=== PATIENT | female | born 1985 | race American Indian/Alaskan Native ===

== ENCOUNTER 2018-01-12 17:34 | Inpatient (IN) | payer OTHER, MEDICAID ==
[2018-01-12] MEDS ORDERED: ZOFRAN IV PRN ×2 (17:54→22:33)
[2018-01-12] MEDS ORDERED: BRETHINE IVP PRN (17:54)
[2018-01-12] MEDS ORDERED: SUBLIMAZE IV PRN (17:54)
[2018-01-12] MEDS ORDERED: NUBAIN IV PRN (17:54)
[2018-01-12] MEDS ORDERED: XYLOCAINE 2% INFILTRATI ONE (17:54)
[2018-01-12] MEDS ORDERED: STADOL IV PRN (17:54)
[2018-01-12] MEDS ORDERED: POLYCILLIN/NS 2 GM/100 ML 2 GM/100 ML BAG IV ONE (17:54)
[2018-01-12] MEDS ORDERED: BRETHINE SUB-Q PRN (17:54)
[2018-01-12] MEDS ORDERED: MINERAL OIL PO PRN (17:54)
[2018-01-12] MEDS ORDERED: ePHEDrine SULFATE IV PRN (17:54)
[2018-01-12] MEDS ORDERED: PITOCin/NS 30 UNIT/500ML 30 UNITS/500 ML BAG IV SCH (18:00)
[2018-01-12] MEDS ORDERED: LACTATED RINGERS 1,000 ML IV SCH (18:00)
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
[2018-01-12 19:46] LABS: Amphetamine Screen,Urine PRESUMPTIVE NEGATIVE; Benzodiazepines Screen,Urine PRESUMPTIVE NEGATIVE; Cannabinoid Screen,Urine PRESUMPTIVE NEGATIVE; Cocaine Screen,Urine PRESUMPTIVE NEGATIVE; Methadone Screen,Urine PRESUMPTIVE NEGATIVE; Opiate Screen,Urine PRESUMPTIVE NEGATIVE
--- NOTE | 2018-01-12 19:48 | Procedure Note ---
OB Delivery Note - Delivery Date of Delivery: 01/12/18 Surgeon: WENDY RIVAS Estimated blood loss: other (350mL) - Vaginal Delivery presentation: vertex Delivery position: OA Intrapartum events: no care Delivery induction: none Delivery monitor: external FHT, external uterine Route of delivery: Delivery placenta: spontaneous (intact) Anesthesia: none - Infant A at 1 minute: 8 at 5 minutes: 9 Gender: Female (8#8oz)
[2018-01-12 19:59] LABS: Hepatitis C Virus Antibody Non-Reactive (NonReactive)
[2018-01-12 20:00] LABS: Rubella IgG Antibody Immune (Immune)
[2018-01-12] MEDS: PITOCin/NS 20 UNIT/1000ML DRIP 20 UNITS/1,000 ML BAG IV SCH ×2 (21:25→21:33)
[2018-01-12] MEDS ORDERED: AMPICILLIN/NS 1 GM/50 ML 1 GM/50 ML BAG IV SCH (21:56)
[2018-01-12] MEDS ORDERED: PHENERGAN PO PRN (22:33)
[2018-01-12] MEDS ORDERED: HEMABATE IM PRN (22:33)
[2018-01-12] MEDS ORDERED: LANSINOH TP PRN (22:33)
[2018-01-12] MEDS ORDERED: TUCKS PAD TP PRN (22:33)
[2018-01-12] MEDS ORDERED: SODIUM CHLORIDE FLUSH SYRINGE 10 ML IV PRN (22:33)
[2018-01-12] MEDS ORDERED: DULCOLAX PR PRN (22:33)
[2018-01-12] MEDS ORDERED: MILK OF MAGNESIA PO PRN (22:33)
[2018-01-12] MEDS ORDERED: PITOCin/NS 20 UNIT/1000ML DRIP 20 UNITS/1,000 ML BAG IV SCH (22:33)
[2018-01-12] MEDS ORDERED: PHENERGAN PR PRN (22:33)
[2018-01-12] MEDS ORDERED: TYLENOL PO PRN (22:33)
[2018-01-12] MEDS ORDERED: METHERGINE IM PRN (22:33)
[2018-01-12] MEDS ORDERED: CYTOTEC PR PRN (22:33)
[2018-01-12] MEDS ORDERED: BENADRYL PO PRN (22:33)
[2018-01-12] MEDS: MOTRIN PO SCH (22:49)
[2018-01-13] MEDS ORDERED: DEPO-PROVERA (CONTRACEPTION) IM NR (08:28)
--- NOTE | 2018-01-13 08:28 | Progress Note ---
Assessment and Plan patient resting w/ c/o cramping. VSSAF, H&H pending - pt w/o s/s of anemia. Lochia scant. Patient requests depo prior to d/c home. Continue pathway. - Patient Problems (1) (normal spontaneous vaginal delivery) Current Visit: Yes Status: Acute (2) No care in current Current Visit: Yes Status: Acute Qualifiers: Trimester: third trimester Qualified Code(s): O09.33 - Supervision of with insufficient care, third trimester Subjective - Subjective Date of service: 01/13/18 Principal diagnosis: day #1 s/p , no care Patient reports: appetite normal, voiding normally, pain well controlled, ambulating normally, no dizzy ambulation, no nauseated [place]: doing well, bottle feeding Objective - Vital Signs Latest vital signs: Vital Signs Temp Pulse Resp BP BP Pulse Ox 01/13/18 02:21 18 01/13/18 00:00 98.4 F 72 20 132/78 01/12/18 22:49 18 01/12/18 21:52 98.2 F 61 20 142/84 01/12/18 21:15 68 146/84 01/12/18 21:11 69 98 01/12/18 21:09 73 94 01/12/18 21:06 76 98 01/12/18 21:01 64 99 01/12/18 21:00 63 151/86 01/12/18 20:56 66 100 01/12/18 20:51 63 99 01/12/18 20:46 65 98 01/12/18 20:45 68 157/87 01/12/18 20:41 68 96 01/12/18 20:36 72 99 01/12/18 20:32 65 91 01/12/18 20:31 68 99 01/12/18 20:30 68 146/92 01/12/18 20:27 69 94 01/12/18 20:26 71 96 01/12/18 20:21 73 98 01/12/18 20:19 78 94 01/12/18 20:16 63 96 01/12/18 20:15 64 141/89 01/12/18 20:11 65 98 01/12/18 20:07 69 94 01/12/18 20:06 97.9 F 68 18 145/88 99 01/12/18 20:01 76 98 01/12/18 20:00 71 145/88 01/12/18 19:56 79 95 01/12/18 19:50 65 85 01/12/18 19:37 84 98 01/12/18 19:35 104 H 86 01/12/18 19:32 105 H 97 01/12/18 19:30 95 H 89 01/12/18 19:27 93 H 99 01/12/18 19:22 83 96 01/12/18 19:17 89 99 01/12/18 19:13 90 93 01/12/18 19:12 93 H 98 01/12/18 19:07 80 96 01/12/18 19:05 87 91 01/12/18 19:02 73 100 01/12/18 18:57 106 H 98 01/12/18 18:56 22 01/12/18 18:52 68 97 01/12/18 18:47 64 100 01/12/18 18:42 66 99 01/12/18 18:37 96 H 94 01/12/18 18:35 72 94 01/12/18 18:32 86 98 01/12/18 18:30 78 93 01/12/18 18:27 86 100 01/12/18 18:25 98.2 F 72 20 131/77 98 01/12/18 18:22 72 100 01/12/18 18:19 65 131/77 01/12/18 18:17 103 H 83 L 01/12/18 18:09 73 100 Intake and Output 01/12/18 01/13/18 01/13/18 23:59 07:59 15:59 Intake Total 16.667 720 Output Total 600 Balance 16.667 120 Intake: IV 16.667 PITOCin/NS 20 UNIT/1000ML 16.667 DRIP 20 units In 1,000 ml @ 125 mls/hr IV DIRECT SUNITA Rx#:[id number] Oral 720 Output: Urine 600 Void 600 Other: Total, Intake Amount 480 Total, Output Amount 600 Weight 283 kg Estimated Blood Loss 350 - Exam Breasts: Present: normal Cardiovascular: Present: Regular rate Lungs: Present: Clear to auscultation, Normal air movement Abdomen: Present: normal appearance, soft Vulva: both: normal Uterus: Present: normal, firm, fundal height at umbilicus Extremities: Present: normal
[2018-01-13 10:01] LABS: Hematocrit 26.3 % (30.3-42.9); Hemoglobin 8.4 gm/dl (10.1-14.3)
--- NOTE | 2018-01-13 15:30 | Discharge Summary ---
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 Please determine if she needs any social services technician assistance Primary care physician: WENDY RIVAS Hospitalization Reason for admission: active labor Delivery: Episiotomy: none Laceration: none Other procedures: none complications: none Discharge diagnosis: IUP at term delivered baby: female (BUFA) Pertinent studies: post delivery H&H 8.4/26.3 Hospital course: uncomplicated vaginal delivery and course, no care Condition at discharge: Good Disposition: DC-01 TO HOME OR SELFCARE - Discharge Diagnoses (1) (normal spontaneous vaginal delivery) Status: Acute (2) No care in current Status: Acute Qualifiers: Trimester: third trimester Qualified Code(s): O09.33 - Supervision of with insufficient care, third trimester Plan - Discharge Medications Prescriptions: Ferrous Sulfate [Feosol 325 MG tab] 325 mg PO TID #90 tablet Ibuprofen [Motrin 800 MG tab] 800 mg PO Q8HR PRN #30 tablet PRN Reason: Pain - Provider Discharge Summary Activity: routine, no sex for 6 weeks, no heavy lifting 4 weeks, no strenuous exercise Diet: routine Instructions: routine Additional instructions: [] Smoking cessation referral if applicable(refer to patient education folder for contact #) [] Refer to [facility] Booklet Call your doctor immediately for: * Fever > 100.5 * Heavy vaginal bleeding ( >1 pad per hour) * Severe persistent headache * Shortness of breath * Reddened, hot, painful area to leg or breast * Drainage or odor from incision. * Keep incision clean and dry at all times and follow doctor's instructions regarding bathing/showering - Follow up plan Follow up: WENDY RIVAS MD [Primary Care Provider] - 7 Days (Please call [phone] to schedule a visit in our office in 4 weeks. Call for any questions or concerns.)
[2018-01-13 18:37] LABS: Hematocrit 24.9 % (30.3-42.9); Hemoglobin 8.3 gm/dl (10.1-14.3); Mean Corpuscular HGB Conc 33 % (30-34); Mean Corpuscular Volume 73 fl (79-97); Platelet Count 166 K/mm3 (140-440); Red Blood Count 3.43 M/mm3 (3.65-5.03)
[2018-01-13 18:39] LABS: Mean Corpuscular Hemoglobin 24 pg (28-32)
[2018-01-13] MEDS: MOTRIN PO SCH (19:34)
[2018-01-14] MEDS: MOTRIN PO SCH (04:46)
[2018-01-14] MEDS ORDERED: BOOSTRIX IM ONE (06:00)
[2018-01-14 17:23] VITALS: BP 149/83
== END 2018-01-14 19:35 | disposition home or self-care (01) | DRG 775 ==
LOC: TRG 17:34 → LD 17:35 → TRG 17:35 → OB 22:03
PROVIDERS: ADMIT Obstetrics & Gynecology; ATTEND Obstetrics & Gynecology
PROC: 10E0XZZ Delivery of Products of Conception, External Approach (ICD-10-PCS; principal; 2018-01-12)
DX: O99.214 Obesity complicating childbirth (principal); Z68.45 Body mass index [BMI] 70 or greater, adult; E66.9 Obesity, unspecified; Z3A.37 37 weeks gestation of pregnancy; Z37.0 Single live birth
CPT/HCPCS: 36415; 80307; 85014; 85018; 85027; 85660; 86592; 86706; 86762; 86803; 86850; 86900; 86901; 87806; 88307; J2590; J3010